=== PATIENT | female | born 1955 | race African-American/Black ===

== ENCOUNTER 2017-05-23 16:28 | Emergency (ER) | payer MEDICARE ==
[~2017-05-23] VITALS: Ht 162.6 cm; Wt 79.0 kg
[~2017-05-23 16:28] MED LIST: ABILIFY10 M1 PO; ALEVE220 MG; AMBIEN CR12.5 MG/BO; AMBIEN CR12.5 MG/BO PO; AMITRIPTYLINE H50 M1 PO; AMITRIPTYLINE H50 MG; AMOXIL500 MG PO; ASPIRIN EC81 MG PO; ASPIRIN325 M3 PO; ATARAX25 MG PO; BACITRACIN28.4 G2 TP; BENTYL20 MG; CELEXA20 MG PO; CITALOPRAM HBR20 MG PO; COLACE100 MG; DORYX100 MG PO; DURAGESIC1 EAC4 TOP; DURAGESIC1 PATC; DURAGESIC1 PATC TOP; DURAGESIC1 PATCH TOP; EEMT HS TABLET1 TAB; ELAVIL50 MG PO; ESTRACE1 M1 PO; ESTRACE1 M3 PO; ESTRADIOL2 MG; FLEXERIL10 MG PO; GABAPENTIN100 MG; IBUPROFEN600 MG PO; IBUPROFEN800 MG PO; LAMICTAL100 M2 PO; LEVAQUIN500 MG PO; LEVOTHROID100 MCG; LEXAPRO10 M2 PO; LEXAPRO10 MG; LORTAB 5/500 TA1 TAB PO; LOTRISONE CREAM45 GM TP; LOTRISONE15 GM TOP; MIRALAX12 EA; MOTRIN600 MG PO; MOVANTIK12.5 MG PO; MUCINEX600 MG; NAPROXEN SODIU220 MG; NASONEX17 GM; NEURONTIN100 M1 PO; NEURONTIN100 MG PO; NEURONTIN300 M1 PO; NEURONTIN300 MG PO; NEURONTIN600 MG PO; NORCO 5/325 TAB1 TAB PO; OMEPRAZOLE20 M3 PO; OMEPRAZOLE20 M4 PO; OXYCODONE HCL5 M1 PO; OXYCODONE HCL5 MG; OXYCODONE HCL5 MG PO; PROTOPIC60 GM; PYRIDIUM200 MG PO; QUININE SULFAT260 MG; RELAFEN500 MG PO; SYNTHROID100 MCG; SYNTHROID75 MC1 PO; SYNTHROID75 MCG PO; THYROID; ZOLOFT50 MG PO; ZOLPIDEM TARTRA10 M2 PO; ZOLPIDEM TARTRA10 MG PO
[2017-05-23 17:04] LABS: BASO % 0.3 % (0-2); EOS % 1.7 % (0-7); EOSINOPHIL ABSOLUTE COUNT 0.2 tho/cmm (0.0-0.7); HCT-HEMATOCRIT 38.9 % (34.0-49.0); HGB-HEMOGLOBIN 12.4 gm/dl (12.0-15.5); IMMATURE GRANULOCYTES ABSOLUTE 0.02 tho/cmm (0-0.03); IMMATURE GRANULOCYTES PERCENT 0.2 % (0-0.3); LYMPH ABSOLUTE COUNT 1.8 tho/cmm (0.8-4.5); MCHC MEAN CORPUSCULAR HGB CONC 31.9 % (32.0-36.0); MCV (MEAN CELL VOLUME) 94.2 fl (82.0-96.0); MEAN PLATELET VOLUME 10.9 cmc (9.4-12.4); MONO % 6.1 % (0-12); MONOCYTE ABSOLUTE COUNT 0.6 tho/cmm (0.0-1.2); NEUTROPHIL ABSOLUTE COUNT 6.4 tho/cmm (1.6-8.0); NEUTROPHIL-AUTOMATED 6.4 tho/cmm (1.6-8.0); NEUTROPHILS % 71.7 % (40-80); PLATELET COUNT 234 tho/cmm (150-450); RED BLOOD COUNT 4.13 mil/cmm (4.00-5.20); RED CELL DISTRIBUTION WIDTH 14.7 % (12.4-16.4)
[2017-05-23 17:11] LABS: PROTHROMBIN TIME 11.5 SECONDS (9.0-13.6)
[2017-05-23 18:11] LABS: ALB/GLOB RATIO 0.9 (0.8-2.0); ALBUMIN 3.4 g/dl (3.5-5.0); ALKALINE PHOSPHATASE 68 U/L (33-138); ALT/SGPT 17 U/L (12-78); ANION GAP 10 mmol/L (0-20); AST/SGOT 18 U/L (10-40); BILIRUBIN,TOTAL 0.1 mg/dl (0-1.5); BLOOD UREA NITROGEN 15 mg/dl (6-24); CALCIUM 8.9 mg/dl (8.5-10.5); CARBON DIOXIDE-VENOUS 27 mmol/L (22-32); CHLORIDE 108 mmol/l (96-110); CREATININE 1.72 mg/dl (0.50-1.10); GLUCOSE 102 mg/dL (70-110); MAGNESIUM 2.2 mg/dl (1.8-2.6); POTASSIUM 4.1 mmol/L (3.7-5.1); SODIUM 141 mmol/L (135-145); eGFR VALUE FOR BLACK 37 mL/Min
== END 2017-05-23 19:50 ==
LOC: EDMED → EDBD 16:28 → EDMED 16:28
PROVIDERS: Emergency Medicine
DX: R07.89 Other chest pain (principal); N17.9 Acute kidney failure, unspecified; F31.9 Bipolar disorder, unspecified; Z90.710 Acquired absence of both cervix and uterus; Z79.899 Other long term (current) drug therapy
CPT/HCPCS: J7030